=== PATIENT | female | born 1985 | race Caucasian/White ===

== ENCOUNTER 2018-03-17 10:26 | Emergency (ER) | payer SELFPAY ==
[2018-03-17 10:37] VITALS: BP 95/62
--- NOTE | 2018-03-17 11:05 | EDPHY ---
H & P Time Seen by Provider: 03/17/18 10:44 HPI/ROS: CHIEF COMPLAINT: Itching rash to bilateral feet and to the hand HISTORY OF PRESENT ILLNESS: 33-year-old immunocompetent female complaining of itching rash to the dorsal aspect of her bilateral feet for approximately the past 10-14 days. She denies new detergents moisturizer similar products. She has been applying topical hydrocortisone but notes that the itching is quite intense. Denies pain. She also notes the past few days 2 new lesions on her left hand. She denies intraoral lesions. Denies GI complaints. Denies fever chills. She has prior history of [id number] disease and states that this is not similar to that. PHYSICAL EXAM (Prior to examination, patient consented to physical exam, hands were washed and my usual and customary physical exam procedures followed) 1) GENERAL: Well-developed, well-nourished, alert and oriented. Appears to be in no acute distress. 2) HEAD: Normocephalic 3) HEENT: sclera anicteric . No intraoral lesions. No injection. 4) LUNGS: Breathing comfortably. 5) SKIN: Bilateral dorsal feet multiple excoriated punctate discrete lesions which are nontender, non erythematous. No signs of cellulitis. No signs of super infection. No lymphangitic streaking. Negative Homans no palpable cord. The patient's left hand dorsal aspect she has 2 small lesions which are nontender. Otherwise no other skin lesions visualized. No intraoral lesions. ] Smoking Status: Current every day smoker Constitutional: Initial Vital Signs Temperature (C) 36.5 C 03/17/18 10:34 Heart Rate 80 03/17/18 10:34 Respiratory Rate 16 03/17/18 10:34 Blood Pressure 95/62 L 03/17/18 10:34 O2 Sat (%) 97 03/17/18 10:34 O2 Delivery Mode Room Air Allergies/Adverse Reactions: No Known Allergies Allergy (Unverified 03/17/18 10:34) Home Medications: Medication Instructions Recorded methylPREDNISolone [Medrol Dose 4 mg PO DAILY #1 ea 03/17/18 Tashi] MDM/Departure - MDM ED Course/Re-evaluation: The patient and I discussed possible etiologies including but not limited to scabies, contact dermatitis, bacterial super infection, ltdo-[id number] disease. Doubt bacterial super infection. Suspect more than likely contact dermatitis. I recommended a Medrol Dosepak as this may moderate her symptoms. I recommend she evaluate for possible allergens and remove these from her environment. She feels comfortable with this plan. I saw this patient independently based on established practice protocols. Care of patient under supervision of secondary supervising physician Dr Roberta Saenz. - Depart Disposition: Home, Routine, Self-Care Clinical Impression: Rash Condition: Good Instructions: Acute Rash (ED) Additional Instructions: Return to the ER if you develop redness, swelling, discharge, warmth to the wound, red streaks going up your leg, or any other symptoms that concern you. Prescriptions: methylPREDNISolone [Medrol Dose Tashi] 4 mg PO DAILY #1 ea Referrals: [facility] [Outside] - As per Instructions
== END 2018-03-17 11:18 | disposition home or self-care (01) ==
DX: R21 Rash and other nonspecific skin eruption (principal)